=== PATIENT | female | born 1950 | race Caucasian/White ===

== ENCOUNTER → 2023-10-21 13:10 | Outpatient (CLI) | payer OTHER, SELFPAY ==
[2023-10-21 13:25] LABS: Urine Volume 10mL (spun)
[2023-10-21 14:08] LABS: Add Manual Diff / Slide Review NO; Basophils Absolute Auto 100 /uL (0-100); Basophils Percent Auto 0.6 % (0-2); Eosinophils Absolute Auto 100 /uL (0-450); Eosinophils Percent Auto 1.1 % (2-4); Hemoglobin 12.9 g/dL (12.0-16.0); Lymphocytes Absolute Auto 2000 /uL (1100-4500); Lymphocytes Percent Auto 23.6 % (25-40); Mean Corpuscular HGB Conc 33.8 % (30-36); Mean Corpuscular Hemoglobin 30.3 PG (26-34); Mean Corpuscular Volume 89.5 fL (80-100); Monocytes Absolute Auto 600 /uL (0-900); Monocytes Percent Auto 7.1 % (3-14); Neutrophils Absolute Auto 5800 /uL (1500-7000); Neutrophils Percent Auto 67.6 % (50-75); Platelet Count 233 X10^3/uL (150-400); Red Blood Cell Count 4.25 X10^6/uL (4.0-5.2); Red Cell Distribution Width 13.3 % (11.6-14.8); White Blood Cell Count 8.6 X10^3/uL (4.5-11.0)
[2023-10-21 14:31] LABS: BUN Creatinine Ratio 29.8 (6-22); Blood Urea Nitrogen 25 mg/dL (7-17); Calcium 10.3 mg/dL (8.4-10.2); Carbon Dioxide 23 mmol/L (22-32); Chloride 103 mmol/L (98-107); Estimated Glomerular Filt Rate > 60 mL/min (>60); Glucose 173 mg/dL (80-110); HEMOLYSIS 17 (0-50); Potassium 3.7 mmol/L (3.4-5.1); Sodium 137 mmol/L (137-145)
[2023-10-21 14:55] LABS: Appearance Urine UA CLEAR; Bilirubin Urine UA NEGATIVE (NEGATIVE); Color Urine UA YELLOW; Glucose Urine UA NEGATIVE (Negative); Ketones Urine UA NEGATIVE (NEGATIVE); Leukocyte Esterase Urine UA 2+ (NEGATIVE); Nitrite Urine UA NEGATIVE (Negative); Occult Blood Urine UA NEGATIVE (Negative); Protein Urine UA NEGATIVE (Negative); Specific Gravity Urine UA 1.015 (1.000-1.035); Urobilinogen Urine UA 0.2 E.U./dL (0.2)
[2023-10-21 15:14] LABS: pH Urine UA 5.5 (4.5-8.0)
[2023-10-21 15:15] LABS: Bacteria Urine None Seen; Culture Indicated Urine Cult Not Indicated; RBC Urine None Seen (0-5/HPF); Squamous Epithelial Cell Urine 10-30 /HPF (0-5/HPF); WBC Urine 5-10/HPF (0-5/HPF)
== END ==
LOC: LAB 13:14
PROVIDERS: PCP Family Medicine; Referring Provider Orthopaedic Surgery; Visit Provider Orthopaedic Surgery
DX: Z01.818 Encounter for other preprocedural examination (principal); Z01.812 Encounter for preprocedural laboratory examination; R73.9 Hyperglycemia, unspecified; N39.0 Urinary tract infection, site not specified
CPT/HCPCS: 36415; 80048; 81001; 83036; 85025; 93005

== ENCOUNTER 2023-11-15 11:28 | Day surgery (SDC) | payer OTHER, SELFPAY ==
[2023-11-02 11:52] VITALS: BMI 26.8
[2023-11-15] VITALS (10 sets, daily range): BP systolic 143–176; BP diastolic 69–89; PULSE 64–98; RESP 14–19; TEMP 36–36.6; O2SAT 97–99; BMI 26.4
--- NOTE | 2023-11-15 06:00 | DI.RAD.S_ITS ---
PROCEDURE: XR PELVIS 1-2V INDICATIONS: DAKOTA TECHNIQUE: 1 view of the lower pelvis acquired. COMPARISON: None. FINDINGS: Bones: Patient is status post right hip arthroplasty, with hardware components in expected positions. The hip joint appears congruent. The visualized bony structures appear intact. Soft tissues: Overlying postoperative changes are noted. No suspicious soft tissue densities. IMPRESSION: Expected post-operative appearance of a hip arthroplasty. Dictated by: Kentrell Raya M.D. on 11/16/2023 at 10:33 Approved by: Kentrell Raya M.D. on 11/16/2023 at 10:33
[2023-11-15] MEDS: ACETAMINOPHEN 325 MG TABLET 975 MG PO (12:20)
[2023-11-15] MEDS: CELECOXIB 200 MG CAPSULE PO (12:21)
[2023-11-15] MEDS: LACTATED RINGERS 1,000 ML 42 ML IV ×2 (12:21→17:28)
[2023-11-15] MEDS: PREGABALIN 75 MG CAPSULE PO (12:21)
[2023-11-15] MEDS: FAMOTIDINE 20 MG/2 ML VIAL IV (12:21)
[2023-11-15] MEDS: VANCOMYCIN 1,000 MG/200 ML PIGGYBACK 200 MG IV (14:00)
--- NOTE | 2023-11-15 15:17 | PM.PREOP ---
Pre-operative Note Interval Note History & Physical reviewed/Exam performed by Physician: Yes Changes to H&P: No
--- NOTE | 2023-11-15 15:18 | PM.OP.1 ---
Operative Date/Time/Diagnoses Date of procedure: 11/15/23 Time of procedure: 15:40 Pre-op diagnosis: right hip OA Post-op diagnosis: same Procedure & Clinicians Procedure: right total hip arthroplasty, posterior approach Same procedure as scheduled: Yes Indications: The patient has had progressively worsening right hip pain with radiographic changes consistent with arthritis. Non-operative management has failed and the patient has requested total hip replacement. The risks, benefits and alternatives to surgery were discussed with the patient prior to proceeding. Risks discussed included, but were not limited to, failure to relieve pain, leg length discrepancy, dislocation, stiffness, infection, nerve damage, deep venous thrombosis, pulmonary embolism, stroke, coma, heart attack, permanent paralysis and , as well as the potential need for eventual revision of the prosthetic. Surgeon: Yajaira Shepard Sap Bw Architect: Jerald Zacarias Anesthesia Type: General and Spinal Operative Notes Findings: Severe right hip osteoarthritis, acceptable bone, acceptable stability Closure Type: primary Specimen(s): none sent Prosthetic devices, grafts, tissues, transplants, or devices: [employer]hew R3 size 52, neutral poly liner,one 6.5 mm screw, polar standard offset size 3 femur with collar, 36 x +4 cobalt chrome head, Estimated Blood Loss (mL): 250 Blood products transfused: none Procedure in detail: The patient was seen in the pre-operative area, where the patient identified the right hip as the operative site and this was marked with my initials. The patient received pre-operative antibiotics and was taken to the operating room and placed on the operative table in the left lateral decubitus position after satisfactory anesthesia. A radio time buyer out was performed. The right leg was prepared from the ankle to the iliac crest with ChloroPrep in the usual fashion and draped through sterile drapes. A PA was used during the procedure was essential for safe implantation of the components. The hip was approached through an approximately 20 cm incision centered over the greater trochanter and curving gently posteriorly as it went proximally. This was carried sharply to the fascia anyi, which was divided and retracted with a self retaining retractor. The trochanteric bursa was excised with care being taken to avoid the sciatic nerve, which was identified and protected throughout the case. The short external rotators were incised and the capsulomuscular flap was raised and tagged for later repair. The hip was dislocated, and a femoral neck osteotomy performed approximately 15 mm above the lesser trochanter. Retractors were placed around the femur. The canal was opened with a box cutting osteotome, followed by a T handled reamer and a lateralizing reamer. The chili pepper broach was then used, followed by sequential broaching until there was good stability of the broach in the femur. Retractors were placed to expose the acetabulum. The labrum and central soft tissues were removed. Reaming was performed initially going up in 2 mm increments, then 1 mm increments until good bite was obtained with an odd sized reamer. The cup 1 mm larger than the last reamer was then inserted using the appropriate anteversion guides. It was further stabilized with a single screw. A trial neutral liner was placed. The broach was placed in the canal. A trial head and neck were then placed and the hip relocated and checked for leg length and stability. An intraoperative film confirmed the component position and no evidence of fracture. The patient was stable in the position of sleep, of squatting, and could be put through a range of motion with 45 degrees internal rotation without dislocation. At 90 degrees flexion, internal rotation to 70? was possible before dislocation. This was felt to be satisfactory and the appropriate components were opened, and the trials were removed. The acetabular liner was impacted into position. The final stem was then impacted into the prepared femoral canal. A brief Betadine soak was performed while trialing with head options. The hip was meticulously irrigated with normal saline. Finally the femoral head was impacted onto the stem. The acetabulum was cleared of all material and the hip relocated one final time. The capsulomuscular flap was then repaired to the greater trochanter though an awl hole using the tag sutures. The short external rotators were repaired with a nonabsorbable suture. A deep drain was placed and brought out anteriorly. The fascia anyi was closed with Vicryl. The subcutaneous layer was closed with barbed sutures and skin can. An Aquacel Ag dressing was applied and the patient was taken to recovery having tolerated the procedure well. Complications: none Post-operative Condition: stable Disposition: Acute Care Plan for aftercare: The patient will be maintained on a standard total hip replacement protocol with weight bearing as tolerated and posterior hip precautions. The patient will receive Aspirin and sequential compression devices for DVT prophylaxis. The patient will be discharged home when safe for the home environment.
[2023-11-15] MEDS: CEFAZOLIN 2 GM/100 ML PREMIX 100 ML IV ×2 (15:50→23:28)
[2023-11-15] MEDS: TRANEXAMIC ACID 1,000 MG VIAL 1000 MG INJ ×2 (16:25→17:25)
[2023-11-15] MEDS: BUPIVACAINE LIPOSOME 266 MG/20 ML VIAL INJ (16:37)
[2023-11-15] MEDS: BUPIVACAINE 0.25% (PF) 60 ML, EPINEPHrine 0.3 MG INJ (16:37)
--- NOTE | 2023-11-15 16:40 | SUR.OPER ---
Lateral on padded OR bed. Gel axillary roll. Arms secured on padded armboard with pillow supporting top arm. Padded hip positioner braces x4 - anterior and posterior chest and pelvis. Additional gel pad used anterior pelvis. Gel pad under bottom leg from knee to foot and secured with tape over sheet.
--- NOTE | 2023-11-15 18:00 | DI.RAD.S_ITS ---
PROCEDURE: XR HIP W PEL IF DONE RT 2V INDICATIONS: POST OP RIGHT HIP TECHNIQUE: AP pelvis and lateral view of the hip acquired. COMPARISON: [facility], [place], XR PELVIS 1-2V, 11/15/2023, 16:56. FINDINGS: Bones: Patient is status post right hip arthroplasty, with hardware components in expected positions. The hip joint appears congruent. The visualized bony structures appear intact. Soft tissues: Overlying postoperative changes are noted. No suspicious soft tissue densities. IMPRESSION: Expected post-operative appearance of a hip arthroplasty. Dictated by: Alondra Barboza M.D. on 11/15/2023 at 19:01 Approved by: Alondra Barboza M.D. on 11/15/2023 at 19:01
[2023-11-15] MEDS: ONDANSETRON 4 MG/2 ML INJ IV ×2 (18:29)
[2023-11-15] MEDS: hydrOXYzine 50 MG/ML INJ 25 MG IM (18:29)
[2023-11-15] MEDS: ACETAMINOPHEN 325 MG TABLET 650 MG PO (19:06)
[2023-11-15] MEDS: LACTATED RINGERS 1,000 ML 100 ML IV (19:06)
[2023-11-15] MEDS: IBUPROFEN 400 MG TABLET PO ×2 (19:06→22:38)
[2023-11-15] MEDS: DOCUSATE 100 MG CAPSULE PO (20:14)
[2023-11-15] MEDS: ASPIRIN EC 81 MG TABLET PO (20:14)
[2023-11-15] MEDS: ATORVASTATIN 20 MG TABLET 10 MG PO (20:14)
[2023-11-15] MEDS: AMLODIPINE 5 MG TABLET PO (20:14)
[2023-11-16] MEDS: ACETAMINOPHEN 325 MG TABLET 650 MG PO ×3 (00:11→12:22)
[2023-11-16 00:45] VITALS: BP 158/73; PULSE 88; RESP 20; TEMP 35.8; O2SAT 96
[2023-11-16] MEDS: IBUPROFEN 400 MG TABLET PO ×4 (03:27→14:27)
[2023-11-16 05:17] VITALS: BP 158/71; PULSE 81; RESP 20; TEMP 35.8; O2SAT 96
[2023-11-16 05:31] LABS: Hematocrit 35.6 % (36-46)
[2023-11-16] MEDS: OXYCODONE IR 5 MG TABLET PO (05:31)
[2023-11-16] MEDS: LEVOTHYROXINE 112 MCG TABLET PO (06:05)
[2023-11-16] MEDS: CEFAZOLIN 2 GM/100 ML PREMIX 100 ML IV (07:08)
[2023-11-16] MEDS: DOCUSATE 100 MG CAPSULE PO (08:14)
[2023-11-16] MEDS: ASPIRIN EC 81 MG TABLET PO (08:14)
[2023-11-16 08:51] VITALS: BP 142/65; PULSE 82; RESP 18; TEMP 36.3; O2SAT 96
--- NOTE | 2023-11-16 08:58 | PM.DS.1 ---
History of Present Illness History of Present Illness Chief complaint: OPB Narrative: Linda is a pleasant 73-year-old female who was postop day #1 status post right total hip arthroplasty, posterior approach by Dr. Shepard. Reports overall she is doing well, pain is well controlled with oral medication alone. Would like to be discharged home to her and family today. States she lives at home with multiple family members who are willing and able to aid in her recovery in the immediate postop period. Her family will be taking off of work for 1 week so she will not be alone for at least 1 week. Has 3 steps up to her home so we will ensure she is able to do stairs with PT today prior to discharge. Reports she has her outpatient PT appointments set up already, 1st appointment is 11/21/2023. Has a walker at home already. Urinating well on her own. Has Oxy Rx at home already. Denies fever, chest pain, shortness of breath, chills, nausea, vomiting. Operative Date/Time/Diagnoses Date of procedure: 11/15/23 Time of procedure: 15:40 Pre-op diagnosis: right hip OA Post-op diagnosis: same Procedure & Clinicians Procedure: right total hip arthroplasty, posterior approach Same procedure as scheduled: Yes Indications: The patient has had progressively worsening right hip pain with radiographic changes consistent with arthritis. Non-operative management has failed and the patient has requested total hip replacement. The risks, benefits and alternatives to surgery were discussed with the patient prior to proceeding. Risks discussed included, but were not limited to, failure to relieve pain, leg length discrepancy, dislocation, stiffness, infection, nerve damage, deep venous thrombosis, pulmonary embolism, stroke, coma, heart attack, permanent paralysis and , as well as the potential need for eventual revision of the prosthetic. Surgeon: Yajaira Shepard Engine Cleaner: Jerald Zacarias Anesthesia Type: General and Spinal Discharge Providers Provider Discharge Date: 11/16/23 Primary care physician: Jamse Browning MD Consults: 11/02/23 12:35 Consult to City Tax Auditor Routine Comment: Pt does not have help @ [place], w/severe COPD 11/15/23 06:00 Consult to Anesthesiology Routine Comment: Consulting Provider: Anesthesiologist Reason for consultation: Regional block for post operative pain control 11/15/23 18:42 Consult to Discharge Planning Routine Comment: Consult to Occupational Therapy Evaluate & Treat Comment: Physician Instructions: Evaluate and treat Consult to Physical Therapy Evaluate & Treat Comment: Physician Instructions: post op DAKOTA protocol Discharge provider: Susana Balderas PA-C Summary Hospital Course Discharge Diagnosis: Right hip osteoarthritis status post right total hip arthroplasty, stable. Hospital Course: Uncomplicated hospital course Exam Vital Signs (past 8 hours): - 11/16/23 05:17 Temperature 96.4 F L Pulse Rate 81 Respiratory Rate 20 Blood Pressure 158/71 H Pulse Oximetry 96 Oxygen Flow Rate 0 Oxygen Delivery Method Room Air Oxygen Flow Rate 0 Narrative Exam Narrative: Sitting comfortably at the edge of the bed during our interview today. Const General: cooperative, healthy appearing and comfortable Resp Effort & Inspection: normal respiratory effort and able to speak in complete sentences Cardio Other: Regular rate. Extremities appear well perfused. Brisk capillary refill. Skin Other: Clean and dry Aquacel dressing over the posterior right hip. Neuro General: patient alert, patient awake and patient oriented x3 Extrem Other: Grossly normal alignment with mild right thigh/knee swelling as expected after surgery. No significant bruising. 5/5 strength with df, PF, EHL, knee flexion, knee extension. Sensation intact throughout the lower extremities. Calf soft and nontender bilaterally Psych Appearance: grossly normal Speech and Movement: speech and movement normal Objective Labs 11/16/23 04:50 Labs: Laboratory Results - last 24 hr 11/16/23 04:50 Hgb 12.0 Hct 35.6 L PFSH Medical History (Updated 11/02/23 @ 12:19 by Priscila Griffin RN) History of COVID-19 (~2022) Hypoglycemia Nervousness Hypothyroidism HLD (hyperlipidemia) HTN (hypertension) Environmental and seasonal allergies Surgical History History of tonsillectomy and adenoidectomy Social History household members: spouse and children Smoking Status: Never smoker alcohol intake: former Discharge Assessment & Plan Assessment and Plan Assessment: Stable status post right total hip arthroplasty, posterior approach. Plan of Treatment: Okay to d/c to home today pending PT evaluation. The patient's questions answered 1) continue multimodal pain management. Ice to the hip for additional pain control. Continue ASA b.i.d. for DVT prophylaxis x6 weeks. 2) keep dressing clean, dry, intact until 2 week postop appointment. No soaking the incision site and pulls, tubs. No topical ointments or creams to the incision site. 3) weightbearing as tolerated, maintain posterior hip precautions. We will continue to work on strength and mobility with outpatient PT. Follow up at [facility] in 2 weeks Discharge Plan Discharge Plan Patient Disposition: Home Provider Discharge Comment: Follow-up at [facility] in 2 weeks for a postop appointment Discharge orders & Medications Discharge Orders: Discharge (Order); Ordered 11/16/23 Ordered By: Susana Balderas Prescriptions: New acetaminophen 325 mg Tablet 650 mg PO Q6H Qty: 120 0RF aspirin 81 mg Tablet,Delayed Release (Dr/Ec) 81 mg PO BID Qty: 90 0RF docusate sodium 100 mg Capsule 100 mg PO BID Qty: 30 0RF ibuprofen 400 mg Tablet 400 mg PO Q4H Qty: 60 0RF ondansetron 4 mg Tablet,Disintegrating 4 mg PO Q4HR PRN (Reason: Nausea) Qty: 14 0RF oxycodone 5 mg Tablet 5 mg PO Q4-6H PRN (Reason: Pain, Moderate (4-6)) Qty: 30 0RF Continued amlodipine 5 mg Tablet 5 mg PO BEDTIME acetaminophen 500 mg Tablet 1,000 mg PO QAM simvastatin 20 mg Tablet 20 mg PO BEDTIME ibuprofen 200 mg Tablet 400 mg PO Q3H levothyroxine 112 mcg Tablet 112 mcg PO DAILY Medication counseling provided by Pharmacist: Yes Follow up/Referrals: Jerald Zacarias PA-C [Advanced Cup Setter Lockstitch] - 11/25/23 1:30 pm (appt:11/24 @ 1:30 with Melisa @ [facility] ) James Browning MD [Primary Care Provider] - Diet/Activity/Treatments Diet: Diet as Tolerated Activity: Weight-bearing as tolerated, posterior hip precautions. Cold/Heat Therapy: Ice to the hip for additional pain control. Skin/Wound/Dressing Care Report to your healthcare provider any signs of infection, such as:: chills, fever, increased pain, unusual drainage and unusual redness Dressing: Keep dressing clean, dry, intact until 2 week postop appointment. No soaking the incision site and posterior types. If dressing becomes saturated or dirty okay to remove in place with clean dry gauze or return to our office for replacement dressing. No topical ointments or creams to the incision site. Visit Report/Discharge Packet Instructions: DI for Hip Replacement, DI for Prescription Opioid Use, Oxycodone Stand Alone Forms: Patient Portal/API, Stroke Signs & Symptoms Discharge Data Primary Care Provider: James Browning Attending Provider: Yajaira Shepard
--- NOTE | 2023-11-16 09:23 | CM.DANOTE ---
Initial DCP Assessment Visit Note Reviewed EMR and met with staff for pt's medical status and anticipated d/c needs. Met with pt at bedside to introduce self and role. Pt found to be awake, oriented, able to express her needs/preferences for d/c. Pt resides with her disabled (COPD) in her adult children's home. She is independent at baseline, already has all necessary home DME for post-op recovery needs. Plan is to d/c home today w/family assistance, her dtr and son-in-law will be taking time off of work to provide for her care needs. Dtr will transport after pt has worked with PT later this morning. No home d/c needs identified for assistance at this time. Payor: [facility] Adv Attending: Dr. Shepard Pt is a 73 year-old F post-op day 1 from her total R-hip arthroplasty, completed yesterday. Pt has a hx of worsening, chronic R-hip pain that has not improved with multiple conservative efforts to alleviate pain and improve mobility. She has been using a cane for the last year, injections have not had lasting benefit. Pt consented to surgery, already has a post-op OP PT plan established for f/u. Discharge Planning/Care Management CM Discharge Assessment Start: 11/16/23 09:21 Freq: Status: Active Protocol: Document 11/16/23 09:21 DPL (Rec: 11/16/23 09:22 DPL [id number]) Discharge Planning Assessment Assigned Dumpcart Driver JESSICA Blackwell Advance Directives? No History Provided By Patient,Medical Record Has Patient been admitted in last 30 No days? Prior Living Arrangements House Household Members spouse,children Type of transporation used prior to Drives own vehicle admit Independent with ADL's Yes Is patient alert and oriented? Yes Caregiver for Another Yes: Spouse has advanced COPD DME Already Rented / Owned Bath Bench,Elevated Toilet Seat,FWW / Walker,Cane Patient/Family Preference OP PT Therapy Barriers to Discharge No Discharge Plan Home Community Services Physical Therapy Transportation Arrangement Daughter Referrals Initiated None needed Whiteboard Updated in Patient Room with Yes name and ext. # of Dumpcart Driver Review Status In Process Please Provide Date Initial DC 11/16/23 Assessment Was Performed Pre-Anesthesia Assessment Start: 11/02/23 11:51 Freq: Status: Active Protocol: Document 11/02/23 11:52 CAB (Rec: 11/02/23 12:35 [facility] [id number]) Pre-Anesthesia Assessment Preferred Name Linda Patient Information Reviewed Via Phone Assessment Assessment Completed With Patient Diagnostic Results BMP/CMP,CBC,EKG,Urinalysis Comment Labs/EKG @ 10/21 Primary Care Provider James Browning Seen Specialist in Last 12 Months Yes Specialist Seen Orthopedist Primary Language Djiboutian Dry Press Operator Required No Height 167.64 cm Weight 75.296 kg Body Mass Index (BMI) 26.8 Hearing Ability Normal Visual Assist Glasses Dentition Type Teeth, Natural Present,Teeth, Missing Barriers to Learning None Hx Anesthesia Reactions No Hx Family Anesthesia Reaction No Hx Malignant Hyperthermia No Hx Blood Transfusions No Anesthesia Review Requested No President Yes: Pt does not have help @ [place]. has severe COPD Additional comment Family members live in house but sleep until noon, work till 11pm alcohol intake former Smoking Status Never smoker Substance Use Type does not use Pain Present Pain Reported Musculoskeletal Symptoms Abnormal Gait,Difficulty Walking,Joint Pain History of Falling (Recent or History of No ) Patient is completely paralyzed or No completely immobile Prosthesis or Orthotic Device Cane Mental Status Oriented to own ability Is patient on oxygen? No Does patient have ROSE/SOB Yes: ROSE due to pressure put on using a cane with ambulation Hx Sleep Apnea No Currently Taking a Beta Junior No Can You Climb a Flight of Stairs Without Yes SOB Hx Chest Pain No Hx SOB Yes: ROSE due to pressure put on using a cane with ambulation Hx Syncope or Dizziness No Anti-Coagulant Therapy No Has a Wildlife Veterinarian No Cardiac Testing No Hx Pacemaker/ICD No Pacemaker Rep Required? No Cardiac Clearance Received Not Applicable Comment Climbs up and down stairs in garage without issue Diet Type At Home Regular Dysphagia No Gastrointestinal Symptoms Constipation,Reflux Bladder Pattern Nocturia Urinary Catheter Present No Hx Urinary Self Catheterization No Diabetes No: Hx of hypoglycemia HgbA1C 6.0 Date 10/21/23 Patient No Lactating No Hx Drug Resistant Organism No Presence of External or Internal Medical No Devices Received a COVID vaccine? Yes Received all doses? Yes Marital Status Lives With spouse,children Current Living Arrangements House Number of Floors (Floors) One Floor Does the Patient Have Assistance After No: Very minimal, has Surgery severe COPD, family minimal help Patient Discharge Plan Description Return Home Comment Pt advised possible same day or overnight length of stay per surgeon Feels Safe in Current Environment Yes Been Physically Hurt or Threatened By a No Person in Current Environment Do you have thoughts of harming yourself None or others? Are you currently considering suicide? No Do you have a plan to hurt yourself or No Plan others? Do You Have Any Spiritual Beliefs That No May Affect Your HC Choices? Do You Have Any Cultural Practices That No May Affect Your HC Choices? Comment [facility] Who Can We Speak to About Patient's Care Family, friends Identifying Code for Release of Patient Declines to issue Information Health Care Proxy/Next of Kin Diane (daughter) Health Care Proxy Emergency Contact Name Diane (daughter) Emergency Contact Advance Directives? No Power of Blade [place] No PAC Instructions Do not shave/clip surgical site,Durable medical equipment ,Medications to take/avoid, Nasal antibiotic,No ETOH/ petroleum product on skin DOS, NPO,Pre-surgical wash,Sensory aids,Sturdy shoes/comfortable clothes,Do not bring valuables and remove jewelry
--- NOTE | 2023-11-16 10:20 | OT.IP.EVAL ---
Current Diagnoses Unilateral primary osteoarthritis, right hip (11/15/23) Surgery Performed Operation Date: 11/15/23 13:45 Actual Procedures p Total Hip Arthroplasty(Right) - Yajaira Shepard MD Past Medical History (Last Updated 11/02/23 @ 12:19 by Priscila Griffin, RN) Environmental and seasonal allergies History of COVID-19 (~2022) HLD (hyperlipidemia) HTN (hypertension) Hypoglycemia Hypothyroidism Nervousness Surgical History (Last Reviewed 11/15/23 @ 11:50 by Gisela Medel RN) History of tonsillectomy and adenoidectomy Occupational Therapy Inpatient Evaluation/Re-Eval M1 PT/OT-IP Prior Functional Status Start: 11/16/23 10:36 Freq: NEEDED Status: Active Protocol: Document 11/16/23 10:36 [facility] (Rec: 11/16/23 10:50 [facility] [id number]) Medical Review Prior Functional Status Communication Independent Mobility and Gait Pt states has been using a cane to get around for the past year. Activities of Daily Living and IADL's Pt having pain with ADL and IADL needs. Prior Functional Level (Other details) Pt's has severe COPD and limited to assist pt. Pt's daughter lives at home and to be able to assist pt. Social History Household Members spouse,children Living Arrangements House Number of Floors (Floors) One Floor Number of Stairs To Enter/Railing? 3 steps with right rail going up. Home Environment Standard Height Toilet,Walk in Shower Home Equipment Front Wheel Walker,Straight Cane,Raised Toilet Seat Without Armrests Additional Social History Comment Pt's daughter to be at home to assist pt . M2 OT-IP Current Condition Start: 11/16/23 10:36 Freq: Status: Active Protocol: Document 11/16/23 10:36 [facility] (Rec: 11/16/23 10:50 [facility] [id number]) Occupational Therapy Current Condition Current Condition Evaluation Date 11/16/23 Treatment Diagnosis S/P R DAKOTA posterior Diagnosis Onset Date 11/15/23 Post Operative Precautions Posterior Hip Precautions No Hip Flexion > 90 degrees,No Hip Internal Rotation,No Hip Adduction M3 OT- IP Subjective and Pain Start: 11/16/23 10:36 Freq: Status: Active Protocol: Document 11/16/23 10:36 [facility] (Rec: 11/16/23 10:50 [facility] [id number]) OT- Subjective Occupational Therapy Visit Type Type Initial Evaluation Visit Start Time 09:30 Visit Stop Time 10:20 Occupational Therapy Visit Comments Patient Comments Pt agreed to do OT eval and get dressed. Patient/Caregiver Goals TO go home. OT Pain Assessment Pain When Pain Assessed At Rest Pain Present Pain Present Denied Pain M4 OT- IP ADL's Start: 11/16/23 10:36 Freq: Status: Active Protocol: Document 11/16/23 10:36 [facility] (Rec: 11/16/23 10:50 [facility] [id number]) OT [id number] General Evaluation Self-Feeding Ability Independent OT ADL-Grooming General Evaluation Grooming Ability Independent OT ADL-Oral Care General Eval Oral Care Ability Independent OT ADL-Dressing General Eval Upper Body Dressing Ability Independent Lower Body Dressing Ability Minimal Assistance Areas Needing Assistance Socks,Shoes Assistive Devices Dressing Assistive Devices Skin Pass Operator,Sock Aid Comments OT Dressing Comments Able to go over use of LB dressing equipment and pt will benefit from obtaining them. Educated to dress her RLE first and take out last. OT ADL-Toileting Comments OT Toileting Comments Pt not having to go. Educated best to stand to wipe to best follow her hip precautions. Use of pads at night if needed. OT ADL-Bathing Comments OT Bathing Comments Pt states to sponge off initially. Suggested to have a long handled brush or assist. Educated of care of the dressing for showering needs. M5 OT- IP IADL's Start: 11/16/23 10:36 Freq: Status: Active Protocol: Document 11/16/23 10:36 [facility] (Rec: 11/16/23 10:50 [facility] [id number]) OT-Instrumental Activities of Daily Living Deficits IADL Deficits Identified Deficits Home Safety Awareness Awareness of Need for Assistance at Home Good Awareness Ability to Problem Solve Emergency Able to Problem Solve Situations Meal Preparation Meal Preparation Caregiver Provides Assist Director Of User Experience Director Of User Experience Caregiver Provides Assist M6 OT- IP Functional Cognition Start: 11/16/23 10:36 Freq: Status: Active Protocol: Document 11/16/23 10:36 [facility] (Rec: 11/16/23 10:50 [facility] [id number]) Cognitive Factors Limiting Selfcare Function Cognitive Ability Level of Alertness Alert Patient Orientation Name,Age,Birthday,Month,Date, Year,Day of Week,Place, Situation Attention Span Ability Capable of Focused Attention, Capable of Sustained Attention Ability to Follow Commands Able to Follow One Step Commands Safety Awareness Decreased Ability to Apply Precautions Cognitive Comments Cognitive Assessment Comments Pt needing reassurance and education for hip precautions. OT- Vision and Hearing OT- Hearing Assessment OT- Hearing Assessment WFL OT- Vision Assessment Visual Acuity Glasses All The Time Occular Pursuits WFL Visual Convergence WFL M7 OT- IP Mobility and Balance Start: 11/16/23 10:36 Freq: Status: Active Protocol: Document 11/16/23 10:36 [facility] (Rec: 11/16/23 10:50 [facility] [id number]) OT- Bed Mobility Assessment Rolling Level of Assistance Standby Assistance Supine to Sit Supine to Sit Assist Standby Assistance Sit to Supine Sit to Supine Assist Standby Assistance Scooting Scooting to Edge of Bed Standby Assistance OT-Transfer Assessment Sit to and From Stand Sit to and from Stand Standby Assistance Transfers Transfer Ability Standby Assistance Technique Transfer Destination Bed,Chair Transfer Technique Stand Step Pivot Devices Transfer Assistive Devices Gait Belt,Front Wheeled Walker Comments Mobility Comments SBA and pt having to use her hands to assist to move her RLE. Pt to get off on the left side of the bed as her will be on the right side and educated to be careful not to roll her leg in . Went over positioning needs. OT- Balance Assessment Sitting Balance and Reactions Static Sitting Balance Ability Normal Dynamic Sitting Balance Ability Good Standing Balance and Reactions Static Standing Balance Ability Good Dynamic Standing Balance Ability Fair M8 OT- IP Objective Assessments Start: 11/16/23 10:36 Freq: Status: Active Protocol: Document 11/16/23 10:36 [facility] (Rec: 11/16/23 10:50 [facility] [id number]) OT Gross Range of Motion Upper Extremity Range of Motion Assessment Within Functional Limits OT Strength Upper Extremity Strength Assessment Within Functional Limits M9 OT- IP Assessment and Plan Start: 11/16/23 10:36 Freq: Status: Active Protocol: Document 11/16/23 10:36 [facility] (Rec: 11/16/23 10:50 [facility] [id number]) OT Summary Assessment and Plan Potential Rehabilitation Potential Excellent Analytic Complexity at Evaluation Low Summary OT Impairments Pain,Balance,Functional Mobility,Dressing,Toileting, Bathing,Shower Transfers Progress Towards Goals Progressing Toward Goals Assessment Summary Pt low complexity and main barriers are steps , needing reminders to follow and reassure her of her hip precautions for ADl and mobility needs. Pt has a supportive family to assist her at home. Suggested pt use th cell phone to call her daughter to assist her to the bathroom at night, obtain a hip kit, and keep reading the folder of hip precautions. Pt to have outpt PT. Goals Dressing Goal Independent,Long Handled Shoe Horn,Skin Pass Operator,Sock Aid Toileting Goal Independent Bathing Goal Independent Toilet Transfer Goal Independent Shower Transfer Goal Independent Days to Meet Goals 10 Frequency of Treatment Frequency Of Treatment Once a Day Treatment Plan OT Treatment Plan ADL Training,Functional Mobility,Patient/Family Education,Discharge Planning Discharge Recommendations OT Discharge Recommendations Home with Assistance, Outpatient PT Home Equipment Needs Hip kit Transportation Needs at Discharge Private Vehicle
--- NOTE | 2023-11-16 11:20 | PT.IIE ---
Current Diagnoses Unilateral primary osteoarthritis, right hip (11/15/23) Surgery Performed Operation Date: 11/15/23 13:45 Actual Procedures p Total Hip Arthroplasty(Right) - Yajaira Shepard MD Surgical History (Last Reviewed 11/15/23 @ 11:50 by Gisela Medel, ALENA) History of tonsillectomy and adenoidectomy Medical History (Last Updated 11/02/23 @ 12:19 by Priscila Griffin, ALENA) Environmental and seasonal allergies History of COVID-19 (~2022) HLD (hyperlipidemia) HTN (hypertension) Hypoglycemia Hypothyroidism Nervousness Physical Therapy Inpatient Evaluation/Re-Eval M1 PT/OT-IP Prior Functional Status Start: 11/16/23 12:53 Freq: NEEDED Status: Active Protocol: Document 11/16/23 11:20 [facility] (Rec: 11/16/23 13:06 AB [id number]) Medical Review Prior Functional Status Medical History Reviewed Yes Communication able to make needs known Mobility and Gait pt stated that she was modified independent with all mobilities and ambulation using her hurrycane Social History Household Members spouse,children Living Arrangements House Number of Floors (Floors) One Floor Number of Stairs To Enter/Railing? 3 steps R rail ascending Home Environment Standard Height Toilet,Walk in Shower Home Equipment Front Wheel Walker,Raised Toilet Seat Without Armrests, Shower Seat with Backrest Additional Social History Comment pt stated that spouse will not be able to assist her due to his own medical issues; daughter, KHADAR and grand daughters at home and will be able to assist her pt has a hurrycane M2 PT-IP Current Condition Start: 11/16/23 12:53 Freq: NEEDED Status: Active Protocol: Document 11/16/23 11:20 [facility] (Rec: 11/16/23 13:06 AB [id number]) Physical Therapy Current Condition Current Condition Evaluation Date 11/16/23 Treatment Diagnosis s/p RTHA posterior; difficulty in walking Onset Date 11/15/23 M3 PT-IP Subjective Start: 11/16/23 12:53 Freq: NEEDED Status: Active Protocol: Document 11/16/23 11:20 [facility] (Rec: 11/16/23 13:06 AB [id number]) Subjective Physical Therapy Visit Type Type Initial Evaluation Visit Start Time 11:20 Visit Stop Time 12:00 Number of HOME WORKER Visits 50 Physical Therapy Visit Comments Patient Comments pt is agreeable to o PT Therapy Pain Assessment Pain When Pain Assessed At Rest Pain Present Pain Present Pain Reported Location Right Hip Scale Used 2 Pain Management Techniques Apply Cold,Distraction, Modification of Treatment,Re- positioning,Timing of Activity with Medications M4 PT-IP Mobility and Gait Start: 11/16/23 12:53 Freq: NEEDED Status: Active Protocol: Document 11/16/23 11:20 [facility] (Rec: 11/16/23 13:06 AB [id number]) PT-Bed Mobility Assessment Supine to Sit Supine to Sit Standby Assistance Sit to Supine Sit to Supine Standby Assistance PT-Transfer Assessment Sit to and From Stand Sit to and from Stand Standby Assistance,Contact Guard Assistance,1 Person Assistance,Use of Upper Extremities Equipment Transfer Assistive Device Gait Belt,Front Wheeled Walker Orthotic/Prosthetic Devices or Brace: No Transfers Transfer Destination Bed,Chair Transfer Technique ambulated Transfer Ability Level of Assist Standby Assistance,Contact Guard Assistance,1 Person Assistance,Use of Upper Extremities Comments Mobility Comments pt sitting on the chair and agreeable to do PT. obtained PLOF and home set up. pt just finished working with OT. asked pt regarding her hip precautions and pt unable to provide. educated and reviewed hip precautions again with pt but when asked again, pt unable to recall. pt completed sit to stand from the chair CGA and ambulated to EOB CGA using FWW ~ 15 ft. pt completed sit<>supine SBA with cues for techniques. pt completed sit to stand from EOB SBA and cues for techniques. pt ambulated back to chair. reviewed hip precautions again and pt recalled 1/3. positioned pt on the chair. call light and table placed within reach. set up caregiver training at 2pm this afternoon. Gait Assessment Gait Gait Assistance Required: Standby Assistance,Contact Guard Assist Distance (Feet) 15 Able to Maintain Weight Bearing Status Yes During Gait Assistive Devices Assistive Device Gait Belt,Front Wheeled Walker Orthotic/Prosthetic Devices or Brace: No Gait Deviations General Gait Pattern Decreased Stride Length, Decreased Feet Clearance Factors Limiting Gait Function Factors Limiting Gait Function Decreased Activity Tolerance, Decreased Strength,Difficulty Following Directions,Limited Range of Motion,Pain,Poor Balance,Poor Safety Awareness PT-Balance Assessment Sitting Balance and Reactions Static Sitting Balance Ability Normal Dynamic Sitting Balance Ability Good Standing Balance and Reactions Static Standing Balance Ability Fair Dynamic Standing Balance Ability Fair Device Used FWW M5 PT-IP Objective Assessments Start: 11/16/23 12:53 Freq: NEEDED Status: Active Protocol: Document 11/16/23 11:20 [facility] (Rec: 11/16/23 13:06 AB [id number]) Orientation Orientation/Cognition Level of Alertness Alert Orientation Name Language Function Ability No Deficits Noted Safety Awareness Decreased Safety Awareness Memory Description Short Term Impaired Gross Range of Motion Lower Extremity ROM Assessment Within Functional Limits Strength Lower Extremity Strength Assessment Right Impaired Hip 3+/5 Knee 3+/5 Coordination Assessment Gross Coordination Gross Coordination WNL Sensation Assessment Sensation Gross Sensation WNL Muscle Tone Muscle Tone WNL Yes M6 PT-IP Treatment Start: 11/16/23 12:53 Freq: NEEDED Status: Active Protocol: Document 11/16/23 11:20 AB (Rec: 11/16/23 13:06 AB [id number]) Physical Therapy Treatment Education Education Provided Precautions,Weight Bearing Status,Safety M7 PT-IP Assessment and Plan Start: 11/16/23 12:53 Freq: NEEDED Status: Active Protocol: Document 11/16/23 11:20 [facility] (Rec: 11/16/23 13:06 AB [id number]) PT Summary Assessment and Plan Potential Rehabilitation Potential Fair Status of Condition at Evaluation Evolving Summary Impairments Pain,ROM,Strength,Balance, Coordination,Sensation,Tone, Cognition,Bed Mobility, Transfers,Gait,Activity Tolerance Assessment Summary pt is a 73 y/o F s/p R DAKOTA posterior POD 1. pt has R hip posterior precautions and is WBAT. pt requiring SBA to CGA with mobility but requires cues for safety and for hip precautions. caregiver training set up this afternoon at 2 pm. will continue to assess. Goals Bed Mobility Goal Independent Transfer Goal Independent,Front Wheeled Walker Gait Goal Independent,Front Wheel Walker Gait Distance 250 Other Goals up/down 3 steps R rail ascending + hurrycane SBA Days to Meet Goals 5 Frequency of Treatment Frequency Of Treatment Twice a Day Treatment Plan Physical Therapy Treatment Plan Bed Mobility Training,Transfer Training,Gait Training, Therapeutic Exercise,Balance Retraining,Post Op Education, Discharge Planning,Hot or Cold Pack,Neuromuscular Re-ed, Coordination Retraining,Manual Therapy Precautions Posterior Hip Precautions No Hip Flexion > 90 degrees,No Hip Internal Rotation,No Hip Adduction Weight Bearing Status Weight Bearing Status Weight Bear as Tolerated Allowed Weight Bearing Amount (enter % RLE WBAT or #) (%) Recommendations To Nursing Amount of Assist Needed 1 Person Assist Discharge Recommendations PT Discharge Recommendations Home with Assistance, Outpatient PT Transportation Needs at Discharge Private Vehicle
--- NOTE | 2023-11-16 14:03 | PT.IPTN ---
Current Diagnoses Unilateral primary osteoarthritis, right hip (11/15/23) Surgery Performed Operation Date: 11/15/23 13:45 Actual Procedures p Total Hip Arthroplasty(Right) - Yajaira Shepard MD Physical Therapy Treatment Note M2 PT-IP Current Condition Start: 11/16/23 12:53 Freq: NEEDED Status: Discharge Protocol: Document 11/16/23 11:20 AB (Rec: 11/16/23 13:06 AB [id number]) Physical Therapy Current Condition Current Condition Evaluation Date 11/16/23 Treatment Diagnosis s/p RTHA posterior; difficulty in walking Onset Date 11/15/23 M3 PT-IP Subjective Start: 11/16/23 12:53 Freq: NEEDED Status: Discharge Protocol: Document 11/16/23 15:42 TS (Rec: 11/16/23 15:56 TS [id number]) Subjective Physical Therapy Visit Type Type Progress Note Visit Start Time 14:03 Visit Stop Time 14:34 Notes Daughter present Number of GROUP ACTIVITIES AIDE Visits 1 Physical Therapy Visit Comments Patient Comments Pt found resting in bed, reports having a foggy brain earlier when working with PT, she is feeling better this afternoon. Pt is agreeable to PT. Therapy Pain Assessment Pain When Pain Assessed At Rest Pain Present Pain Present Pain Reported Location Right Hip Scale Used 2 Pain Management Techniques Apply Cold,Distraction, Modification of Treatment,Re- positioning,Timing of Activity with Medications M4 PT-IP Mobility and Gait Start: 11/16/23 12:53 Freq: NEEDED Status: Discharge Protocol: Document 11/16/23 15:42 TS (Rec: 11/16/23 15:56 TS [id number]) PT-Bed Mobility Assessment Supine to Sit Supine to Sit Standby Assistance Scooting Scooting to Edge of Bed Standby Assistance PT-Transfer Assessment Sit to and From Stand Sit to and from Stand Standby Assistance,Use of Upper Extremities Equipment Transfer Assistive Device Gait Belt,Front Wheeled Walker Orthotic/Prosthetic Devices or Brace: No Comments Mobility Comments Pt recalled 3/3 hip precautions prior to mobility. Supine to sit SBA with HOB flat, cues provided for LE's over EOB and for uprighting trunk. STS from bed SBA, pt demonstrates good carryover of sequencing from previous session with RLE out inf ornt of her. She ambulated in hallway ~200'SBA with use of FWW, pt goes back and forth between step to and step thru gait. She performed stairs x6 with daughters assist CGA, pt educated on proper stair sequencing. She ambulated back to room. Education was provided on intensity and frequency of post-op ex. Pt was left in room all needs met . Gait Assessment Gait Gait Assistance Required: Standby Assistance Distance (Feet) 200 Able to Maintain Weight Bearing Status Yes During Gait Assistive Devices Assistive Device Gait Belt,Front Wheeled Walker Orthotic/Prosthetic Devices or Brace: No Gait Deviations General Gait Pattern Decreased Stride Length, Decreased Feet Clearance Factors Limiting Gait Function Factors Limiting Gait Function Decreased Activity Tolerance, Decreased Strength,Difficulty Following Directions,Limited Range of Motion,Pain,Poor Balance Comments Gait Comments See mobility comments Stair Climbing Assessment Evaluation Level of Assist On Stairs Contact Guard Assistance,1 Person Assistance Devices Stair Climbing Assistive Devices Right Railing Technique/Endurance Stair Climbing Direction Ascend and Descend Stair Climbing Technique Step to Step Number of Steps Climbed 6 Comments Stair Climbing Comments See mobility comments PT-Balance Assessment Sitting Balance and Reactions Static Sitting Balance Ability Normal Dynamic Sitting Balance Ability Good Standing Balance and Reactions Static Standing Balance Ability Fair Dynamic Standing Balance Ability Fair Device Used FWW M5 PT-IP Objective Assessments Start: 11/16/23 12:53 Freq: NEEDED Status: Discharge Protocol: Document 11/16/23 11:20 AB (Rec: 11/16/23 13:06 AB [id number]) Orientation Orientation/Cognition Level of Alertness Alert Orientation Name Language Function Ability No Deficits Noted Safety Awareness Decreased Safety Awareness Memory Description Short Term Impaired Gross Range of Motion Lower Extremity ROM Assessment Within Functional Limits Strength Lower Extremity Strength Assessment Right Impaired Hip 3+/5 Knee 3+/5 Coordination Assessment Gross Coordination Gross Coordination WNL Sensation Assessment Sensation Gross Sensation WNL Muscle Tone Muscle Tone WNL Yes M6 PT-IP Treatment Start: 11/16/23 12:53 Freq: NEEDED Status: Discharge Protocol: Document 11/16/23 15:42 TS (Rec: 11/16/23 15:56 TS [id number]) Physical Therapy Treatment Education Education Provided Precautions,Weight Bearing Status,Safety M7 PT-IP Assessment and Plan Start: 11/16/23 12:53 Freq: NEEDED Status: Discharge Protocol: Document 11/16/23 15:42 TS (Rec: 11/16/23 15:56 TS [id number]) PT Summary Assessment and Plan Potential Rehabilitation Potential Fair Summary Impairments Pain,ROM,Strength,Balance, Coordination,Sensation,Tone, Cognition,Bed Mobility, Transfers,Gait,Activity Tolerance Progress Towards Goals Progressing Toward Goals Assessment Summary Linda is making good progress with her mobility this session . Linda is SBA for all bed mobility and demonstrates good awareness of her hip precautions during mobility. She progressed her gait to ~ 200'SBA with use of FWW. She performed stairs x6 ascending and descending with CGA form daughter. Daughter as instructed in STS sequencing, gait trianing and stairs. PT is recommending home with assist and outpatient PT. Goals Bed Mobility Goal Independent Transfer Goal Independent,Front Wheeled Walker Gait Goal Independent,Front Wheel Walker Gait Distance 250 Other Goals up/down 3 steps R rail ascending + hurrycane SBA Days to Meet Goals 5 Frequency of Treatment Frequency Of Treatment Twice a Day Treatment Plan Physical Therapy Treatment Plan Bed Mobility Training,Transfer Training,Gait Training, Therapeutic Exercise,Balance Retraining,Post Op Education, Discharge Planning,Hot or Cold Pack,Neuromuscular Re-ed, Coordination Retraining,Manual Therapy Precautions Posterior Hip Precautions No Hip Flexion > 90 degrees,No Hip Internal Rotation,No Hip Adduction Weight Bearing Status Weight Bearing Status Weight Bear as Tolerated Allowed Weight Bearing Amount (enter % RLE WBAT or #) (%) Recommendations To Nursing Amount of Assist Needed 1 Person Assist Discharge Recommendations PT Discharge Recommendations Home with Assistance, Outpatient PT Transportation Needs at Discharge Private Vehicle
--- NOTE | 2023-11-16 14:43 | PC.NURSE ---
Pt is dressed and ready for discharge home with Daughter. IV has been removed. Went over d/c instructions with Pt and Daughter-discussed d/c meds, time of last dose, reviewed stroke education, hip precautions, no driving while on narcotics, s/s of infection, showering, and follow up appointment. Reminded Pt to drink plenty of fluids to prevent constipation or dehydration. Pt denied further questions and was taken out via w/c by [employer]CH[employer] ASSISTANT to POV with Daughter and all belongings.
== END 2023-11-16 14:48 | disposition home or self-care (01) ==
LOC: OR 12:01 → AC 14:48
PROVIDERS: PCP Family Medicine; Referring Provider Orthopaedic Surgery; Visit Provider Orthopaedic Surgery
PROC: 0SR90JZ Replacement of Right Hip Joint with Synthetic Substitute, Open Approach (ICD-10-PCS; CPT 27130; principal; 2023-11-15 13:45)
DX: M16.11 Unilateral primary osteoarthritis, right hip (principal)
CPT/HCPCS: 27130; 36415; 72170; 73502; 82962; 85014; 85018; 97116; 97162; 97165; 97530; 97535; C1776; C9290; J0171; J0690; J1100; J1170; J2250; J2405; J2704; J3010; J3410